=== PATIENT | male | born 1955 | race Two or more races ===

== ENCOUNTER → 2017-06-24 | Outpatient (CLI) | payer BC | LOC: BRMIMAGING 15:28 | PROVIDERS: ATTEND Physician Assistant Medical | DX: S99.911A Unspecified injury of right ankle, initial encounter (principal) | CPT/HCPCS: 73610-PO; 73620-PO ==

== ENCOUNTER → 2017-08-13 | Outpatient (CLI) | payer BC | LOC: BRMIMAGING 16:25 | PROVIDERS: ATTEND Physician Assistant Medical | DX: M19.141 Post-traumatic osteoarthritis, right hand (principal) | CPT/HCPCS: 73130-PO ==

== ENCOUNTER → 2018-05-17 | Outpatient (CLI) | payer BC | LOC: BRMIMAGING 16:50 | PROVIDERS: ATTEND Physician Assistant Medical | DX: J98.4 Other disorders of lung (principal) | CPT/HCPCS: 71046-PO ==